=== PATIENT | female | born 1980 | race Caucasian/White ===

== ENCOUNTER → 2016-12-20 | Outpatient (CLI) | payer MEDICARE ==
[~2016-12-20] MED LIST: AMOXICILLIN500 MG PO; ANAPROX DS550 MG PO; ASPIRIN325 M2 PO; AUGMENTIN 500 M1 TAB PO; AUGMENTIN 875875 MG PO; FLEXERIL10 MG PO; FLEXERIL5 MG PO; IBU-8800 MG PO; LAMICTAL25 MG PO; MOTRIN800 MG PO; NAPROSYN500 MG PO; Nizoral 2%15 GM PO; PEPCID20 MG PO; PHENERGAN25 M1 PO; PREDNISONE20 MG PO; TRAMADOL HCL50 MG PO; ULTRAM50 MG PO; VALIUM10 MG PO; VICODIN 5/500 505 MG PO
== END | disposition home or self-care (01) ==
LOC: MRI 08:50
DX: G54.2 Cervical root disorders, not elsewhere classified (principal); M62.81 Muscle weakness (generalized); M48.02 Spinal stenosis, cervical region; M62.9 Disorder of muscle, unspecified

== ENCOUNTER → 2017-05-26 | Outpatient (CLI) | payer MEDICARE | END | disposition home or self-care (01) | LOC: RAD 14:30 | DX: M54.5 Low back pain (principal) ==

== ENCOUNTER 2018-02-22 12:31 | Emergency (ER) | payer MEDICARE ==
[~2018-02-22] VITALS: Ht 162.5 cm; Wt 63.5 kg
[2018-02-22] MEDS ORDERED: EC NAPROSYN,NA500 MG PO (14:54)
== END 2018-02-22 15:22 | disposition home or self-care (01) ==
LOC: ED 12:31
DX: M79.672 Pain in left foot (principal); Z91.048 Other nonmedicinal substance allergy status; Z88.6 Allergy status to analgesic agent; Z90.710 Acquired absence of both cervix and uterus

== ENCOUNTER 2019-10-16 19:54 | Emergency (ER) | payer MEDICARE ==
[~2019-10-16] VITALS: Ht 162.5 cm; Wt 83.5 kg
[~2019-10-16 19:54] MED LIST changes: +EC NAPROSYN,NA500 MG PO
[2019-10-16 20:27] LABS: BASO # 0.2 10*3/uL (0.0-0.1); BASO % 1.2 % (0.0-1.0); EOS # 0.6 10*3/uL (0.0-0.4); EOS % 4.6 % (1.0-4.0); HEMATOCRIT 44.5 % (37.0-47.0); LYMPH # 3.3 10*3/uL (1.3-4.4); LYMPH % 26.5 % (27.0-41.0); MEAN CORPUSCULAR HGB 32.1 pg (27.0-31.0); MEAN CORPUSCULAR HGB CONC 35.3 g/dl (33.0-37.0); MEAN PLATELET VOLUME 9.6 fl (9.6-12.3); MONO # 0.7 10*3/uL (0.1-1.0); MONO % 5.7 % (3.0-9.0); NEUT # 7.7 10*3/uL (2.3-7.9); NEUT % 61.8 % (47.0-73.0); PLATELET COUNT AUTOMATED 397 10*3/uL (130-400); RED BLOOD COUNT 4.89 10*6/uL (4.10-5.10); RED CELL DISTRI WIDTH 12.4 % (0-14.5); WHITE BLOOD COUNT 12.4 10*3/uL (4.8-10.8)
[2019-10-16 20:38] LABS: ACT PARTIAL THROMBO TIME 28.8 SECONDS (20.0-32.1)
[2019-10-16 20:55] LABS: ALBUMIN 3.9 gm/dl (3.1-4.5); ALKALINE PHOSPHATASE 72 U/L (45-117); BUN 5 mg/dl (7-24); CHLORIDE 107 mmol/L (98-107); CREATININE 0.72 mg/dL (0.55-1.02); POTASSIUM 3.5 mmol/L (3.5-5.1); SGOT/AST 13 IU/L (3-35); SGPT/ALT 27 U/L (12-78); SODIUM 138 mmol/L (136-145); TOTAL PROTEIN 7.9 gm/dL (6.4-8.2)
[2019-10-16 20:56] LABS: TROPONIN I < 0.015 ng/ml (<0.045)
== END 2019-10-17 00:56 | disposition left against medical advice (07) ==
LOC: ED 19:54
PROVIDERS: Emergency Medicine
DX: J44.1 Chronic obstructive pulmonary disease with (acute) exacerbation (principal); F41.9 Anxiety disorder, unspecified; F31.9 Bipolar disorder, unspecified; F17.200 Nicotine dependence, unspecified, uncomplicated; Z88.8 Allergy status to other drugs, medicaments and biological substances; Z79.899 Other long term (current) drug therapy; Z79.82 Long term (current) use of aspirin

== ENCOUNTER → 2020-11-06 | Outpatient (CLI) | payer MEDICARE ==
[~2020-11-06] MED LIST changes: +ASPIRIN ADULT L81 M2 PO; +NEURONTIN300 MG PO; +VITAMIN D3125 MC1 PO; +ZITHROMAX250 MG PO
== END | disposition home or self-care (01) ==
LOC: RESCLI 00:43
PROVIDERS: ATTEND Internal Medicine
DX: E55.9 Vitamin D deficiency, unspecified (principal); E66.9 Obesity, unspecified; M54.12 Radiculopathy, cervical region; E53.8 Deficiency of other specified B group vitamins; J41.0 Simple chronic bronchitis; J30.2 Other seasonal allergic rhinitis; D68.9 Coagulation defect, unspecified; F17.210 Nicotine dependence, cigarettes, uncomplicated; Z79.899 Other long term (current) drug therapy

== ENCOUNTER 2021-01-23 11:28 | Emergency (ER) | payer MEDICARE ==
[~2021-01-23] VITALS: Ht 162.5 cm; Wt 93.0 kg
[2021-01-23 13:14] LABS: BASO # 0.1 10*3/uL (0.0-0.1); BASO % 0.9 % (0.0-1.0); EOS # 0.2 10*3/uL (0.0-0.4); EOS % 1.7 % (1.0-4.0); HEMATOCRIT 46.3 % (37.0-47.0); LYMPH % 14.5 % (27.0-41.0); MEAN CELL VOLUME 92.8 fl (81.0-99.0); MEAN CORPUSCULAR HGB 31.9 pg (27.0-31.0); MEAN CORPUSCULAR HGB CONC 34.3 g/dl (33.0-37.0); MEAN PLATELET VOLUME 9.6 fl (9.6-12.3); MONO # 0.7 10*3/uL (0.1-1.0); MONO % 5.2 % (3.0-9.0); NEUT # 10.8 10*3/uL (2.3-7.9); NEUT % 77.4 % (47.0-73.0); PLATELET COUNT AUTOMATED 347 10*3/uL (130-400); RED BLOOD COUNT 4.99 10*6/uL (4.10-5.10); RED CELL DISTRI WIDTH 12.5 % (0-14.5)
[2021-01-23 13:34] LABS: ALBUMIN 4.1 gm/dl (3.1-4.5); ALKALINE PHOSPHATASE 95 U/L (45-117); BUN 14 mg/dl (7-24); CHLORIDE 103 mmol/L (98-107); CREATININE 0.73 mg/dL (0.55-1.02); LIPASE 78 U/L (73-393); SGOT/AST 16 IU/L (3-35); SGPT/ALT 29 U/L (12-78); SODIUM 134 mmol/L (136-145); TOTAL PROTEIN 8.2 gm/dL (6.4-8.2)
[2021-01-23 13:36] LABS: BETA-HCG, QUANT < 1.0 mIU/mL (1-3)
== END 2021-01-23 14:36 | disposition home or self-care (01) ==
LOC: ED 11:28
PROVIDERS: Emergency Medicine
DX: R09.81 Nasal congestion (principal); Z20.822 Contact with and (suspected) exposure to COVID-19; R05 Cough; Z79.82 Long term (current) use of aspirin

== ENCOUNTER → 2021-05-01 | Outpatient (CLI) | payer MEDICARE | END | disposition home or self-care (01) | LOC: RESCLI 00:54 | PROVIDERS: ATTEND Internal Medicine | DX: I82.409 Acute embolism and thrombosis of unspecified deep veins of unspecified lower extremity (principal); J41.0 Simple chronic bronchitis; M54.12 Radiculopathy, cervical region; D68.9 Coagulation defect, unspecified; E53.8 Deficiency of other specified B group vitamins; E55.9 Vitamin D deficiency, unspecified; J30.2 Other seasonal allergic rhinitis; Z79.82 Long term (current) use of aspirin; Z79.899 Other long term (current) drug therapy; Z98.890 Other specified postprocedural states ==

== ENCOUNTER → 2021-06-25 | Outpatient (CLI) | payer MEDICARE | END | disposition home or self-care (01) | LOC: US 09:22 | PROVIDERS: ATTEND Family Medicine | DX: I82.403 Acute embolism and thrombosis of unspecified deep veins of lower extremity, bilateral (principal) ==

== ENCOUNTER → 2021-09-04 | Outpatient (CLI) | payer MEDICARE | END | disposition home or self-care (01) | LOC: US 14:21 | PROVIDERS: ATTEND Family Medicine | DX: I82.409 Acute embolism and thrombosis of unspecified deep veins of unspecified lower extremity (principal); M79.662 Pain in left lower leg; M79.661 Pain in right lower leg ==

== ENCOUNTER → 2021-10-30 | Outpatient (CLI) | payer MEDICARE | END | disposition home or self-care (01) | LOC: RESCLI 01:51 | PROVIDERS: ATTEND Student in an Organized Health Care Education/Training Program | DX: D68.9 Coagulation defect, unspecified (principal); J41.0 Simple chronic bronchitis; M54.12 Radiculopathy, cervical region; E53.8 Deficiency of other specified B group vitamins; E55.9 Vitamin D deficiency, unspecified; J30.2 Other seasonal allergic rhinitis; R11.0 Nausea; M79.10 Myalgia, unspecified site; F17.200 Nicotine dependence, unspecified, uncomplicated; R79.89 Other specified abnormal findings of blood chemistry; Z79.899 Other long term (current) drug therapy; Z79.82 Long term (current) use of aspirin; Z88.8 Allergy status to other drugs, medicaments and biological substances ==

== ENCOUNTER 2022-10-08 06:09 | Emergency (ER) | payer MEDICARE ==
[~2022-10-08] VITALS: Ht 162.5 cm; Wt 79.4 kg
[2022-10-08 07:04] LABS: BASO # 0.1 10*3/uL (0.0-0.1); BASO % 0.5 % (0.0-1.0); EOS # 0.1 10*3/uL (0.0-0.4); HEMATOCRIT 46.1 % (37.0-47.0); LYMPH # 2.7 10*3/uL (1.3-4.4); LYMPH % 18.3 % (27.0-41.0); MEAN CORPUSCULAR HGB 32.3 pg (27.0-31.0); MEAN CORPUSCULAR HGB CONC 35.1 g/dl (33.0-37.0); MEAN PLATELET VOLUME 9.7 fl (9.6-12.3); MONO # 0.8 10*3/uL (0.1-1.0); MONO % 5.2 % (3.0-9.0); NEUT % 74.5 % (47.0-73.0); PLATELET COUNT AUTOMATED 304 10*3/uL (130-400); RED BLOOD COUNT 5.01 10*6/uL (4.10-5.10); RED CELL DISTRI WIDTH 12.6 % (0-14.5); WHITE BLOOD COUNT 14.7 10*3/uL (4.8-10.8)
[2022-10-08 07:26] LABS: ALKALINE PHOSPHATASE 45 U/L (46-116); BUN 7 mg/dl (9-23); CHLORIDE 105 mmol/L (98-107); POTASSIUM 3.4 mmol/L (3.4-5.1); SGPT/ALT 48 U/L (10-49); TOTAL PROTEIN 7.3 gm/dL (6.0-8.0)
[2022-10-08] MEDS ORDERED: BENZONATATE100 M1 PO (09:18)
== END 2022-10-08 09:36 | disposition home or self-care (01) ==
LOC: ED 06:09
PROVIDERS: Emergency Medicine
DX: B34.9 Viral infection, unspecified (principal); Z88.8 Allergy status to other drugs, medicaments and biological substances; J44.9 Chronic obstructive pulmonary disease, unspecified; F41.9 Anxiety disorder, unspecified; F31.9 Bipolar disorder, unspecified; E16.2 Hypoglycemia, unspecified; Z90.710 Acquired absence of both cervix and uterus; Z98.51 Tubal ligation status; F17.200 Nicotine dependence, unspecified, uncomplicated; Z20.822 Contact with and (suspected) exposure to COVID-19

== ENCOUNTER → 2023-02-24 | Outpatient (CLI) | payer MEDICARE ==
[~2023-02-24] MED LIST changes: +BENZONATATE100 M1 PO
== END | disposition home or self-care (01) ==
LOC: RAD 10:44
PROVIDERS: ATTEND Nurse Practitioner Family
DX: J44.9 Chronic obstructive pulmonary disease, unspecified (principal)

== ENCOUNTER → 2024-08-20 | Outpatient (CLI) | payer MEDICARE ==
[2024-08-20 17:36] LABS: BASO # 0.1 10*3/uL (0.0-0.1); BASO % 1.5 % (0.0-1.0); EOS # 0.4 10*3/uL (0.0-0.4); EOS % 4.7 % (1.0-4.0); HEMATOCRIT 44.5 % (37.0-47.0); MEAN CELL VOLUME 96.3 fl (81.0-99.0); MEAN CORPUSCULAR HGB 32.5 pg (27.0-31.0); MEAN CORPUSCULAR HGB CONC 33.7 g/dl (33.0-37.0); MONO # 0.6 10*3/uL (0.1-1.0); MONO % 6.2 % (3.0-9.0); NEUT # 4.3 10*3/uL (2.3-7.9); NEUT % 45.5 % (47.0-73.0); PLATELET COUNT AUTOMATED 335 10*3/uL (130-400); RED BLOOD COUNT 4.62 10*6/uL (4.10-5.10); RED CELL DISTRI WIDTH 12.7 % (0-14.5); WHITE BLOOD COUNT 9.4 10*3/uL (4.8-10.8)
[2024-08-20 17:51] LABS: ALKALINE PHOSPHATASE 52 U/L (46-116); BUN 6 mg/dl (9-23); CHLORIDE 108 mmol/L (98-107); CHOLESTEROL 145 mg/dL (<200); LDL CHOLESTEROL 68 mg/dL (9-159); POTASSIUM 3.8 mmol/L (3.4-5.1); SGPT/ALT 14 U/L (5-49); TOTAL PROTEIN 6.9 gm/dL (6.0-8.0); TRIGLYCERIDES 122 mg/dl (<150)
== END | disposition home or self-care (01) ==
LOC: LAB 15:49
PROVIDERS: ATTEND Nurse Practitioner Family
DX: J44.9 Chronic obstructive pulmonary disease, unspecified (principal); E78.1 Pure hyperglyceridemia; Z76.89 Persons encountering health services in other specified circumstances; Z79.01 Long term (current) use of anticoagulants; Z13.29 Encounter for screening for other suspected endocrine disorder

== ENCOUNTER 2025-01-29 21:02 | Emergency (ER) | payer MEDICARE ==
[~2025-01-29] VITALS: Wt 75.3 kg
[2025-01-29] MEDS ORDERED: XARE20MG PO (21:11)
[2025-01-29] MEDS ORDERED: DULER200 INH (21:12)
[2025-01-29] MEDS ORDERED: VENT7GM INH (21:12)
[2025-01-29] MEDS ORDERED: BUSPIRONE10 MG PO (21:12)
[2025-01-29] MEDS ORDERED: Lidocaine Hydrochloride 5 ML AMP SC ONE (21:35)
== END 2025-01-29 22:40 | disposition home or self-care (01) ==
LOC: ED 21:02
DX: S91.311A Laceration without foreign body, right foot, initial encounter (principal); F17.200 Nicotine dependence, unspecified, uncomplicated; Z91.048 Other nonmedicinal substance allergy status; Z79.899 Other long term (current) drug therapy; Z90.710 Acquired absence of both cervix and uterus; Z98.890 Other specified postprocedural states; W20.8XXA Other cause of strike by thrown, projected or falling object, initial encounter; Y93.89 Activity, other specified; Y92.89 Other specified places as the place of occurrence of the external cause; Y99.8 Other external cause status